=== PATIENT | male | born 1995 | race Caucasian/White ===

== ENCOUNTER 2017-07-14 15:31 | Emergency (ER) | payer BC, OTHER ==
[~2017-07-14 15:31] MED LIST: CLIN150 PO
[2017-07-14 15:33] VITALS: BP 159/87; PULSE 90; RESP 16; TEMP 97.6; O2SAT 100
--- NOTE | 2017-07-14 16:29 | RADRPT ---
EXAM DATE/TIME: 07/14/2017 15:58 [place] COMPARISON: No previous studies available for comparison. INDICATIONS : Left sided chest pain. MEDICAL HISTORY : None. SURGICAL HISTORY : None. ENCOUNTER: Initial ACUITY: 4 - 6 days PAIN SCORE: 5/10 LOCATION: Left upper chest FINDINGS: PA and lateral views of the chest demonstrate the lungs to be symmetrically aerated without evidence of mass, infiltrate or effusion. The cardiomediastinal contours are unremarkable. Osseous structure s are intact. Incidental note of a pectus excavatum deformity of the lower sternum. CONCLUSION: No acute cardiopulmonary process. Rd Perez MD on July 14, 2017 at 16:22 Board Certified Radiologist. This report was verified electronically.
--- NOTE | 2017-07-14 16:46 | PD ---
HPI Chief Complaint: Chest Pain Time Seen by Provider: 16:05 Travel History International Travel<30 days: No Contact w/Intl Traveler<30days: No Traveled to known affect area: No History of Present Illness HPI Said 21-year-old man who presents to the emergency department complaining of intermittent chest pain and anxiety symptoms. He states he started a couple nights ago when he was lying in bed and he felt like he stopped breathing. States since then he has had pain in his chest and some shortness of breath. No personal history of anxiety. States he may been under a little bit more stress than normal but not really all that much. No recent flights or rhythm 4 hours, did fly to [place] recently, 3 hours. No leg swelling or other evidence of DVT. No recent injuries. No recent increase in activity or work out. History Past Medical History Medical History: Denies Significant Hx Tetanus Vaccination: < 5 Years Social History Alcohol Use: Yes Tobacco Use: Yes Allergies-Medications (Allergen,Severity, Reaction): Coded Allergies: Sulfa (Sulfonamide Antibiotics) (Unverified Allergy, Mild, Hives, 03/31/17) amoxicillin (Unverified Allergy, Mild, Hives, 03/31/17) Reported Meds & Prescriptions Reported Meds & Active Scripts Active Cleocin (Clindamycin HCl) 150 Mg Cap 1 Tab PO Q8HR Review of Systems Except as stated in HPI: all other systems reviewed are Neg Physical Exam Narrative GENERAL: Well-appearing 21-year-old man, no acute distress. SKIN: Focused skin assessment warm/dry. HEAD: Atraumatic. Normocephalic. EYES: Pupils equal and round. No scleral icterus. No injection or drainage. ENT: No nasal bleeding or discharge. Mucous membranes pink and moist. NECK: Trachea midline. No JVD. CARDIOVASCULAR: Regular rate and rhythm. No murmur appreciated. RESPIRATORY: No accessory muscle use. Clear to auscultation. Breath sounds equal bilaterally. GASTROINTESTINAL: Abdomen soft, non-tender, nondistended. Hepatic and splenic margins not palpable. MUSCULOSKELETAL: No obvious deformities. No clubbing. No cyanosis. No edema. NEUROLOGICAL: Awake and alert. No obvious cranial nerve deficits. Motor grossly within normal limits. Normal speech. PSYCHIATRIC: Appropriate mood and affect; insight and judgment normal. Data Data Last Documented VS Vital Signs Date Time Temp Pulse Resp B/P (MAP) Pulse Ox O2 Delivery O2 Flow Rate FiO2 07/14/17 15:33 97.6 90 16 159/87 (111) 100 Room Air Orders Orders Electrocardiogram (07/14/17 15:40) Chest, Pa & Lat (07/14/17 15:40) [facility] Medical Decision Making Medical Screen Exam Complete: Yes Emergency Medical Condition: Yes Interpretation(s) Personal review of EKG: Man normal sinus rhythm at a rate of 66, normal axis, normal intervals, some J-point elevation anteriorly precordial leads suggestive of early repolarization, normal intervals, no definite evidence of acute ischemia. Chest x-ray: Negative Differential Diagnosis Anxiety, PE, dissection, ACS, palpitations, arrhythmia, other Narrative Course Medical decision making This 21-year-old man who presents emergency department with sounds like anxiety symptoms. Palpitations and chest heaviness at night, looks otherwise well. No real risk factors for PE. No red flag symptoms for dissection. X-rays unremarkable. EKG reassuring. Recommend supportive treatment. Diagnosis Primary Impression: Heart palpitations Additional Instructions: Follow-up with her primary doctor in the next 2-4 days if you're not completely well. Return to the emergency department for any worsening chest pain or trouble breathing. Disposition: 01 DISCHARGE HOME Condition: Stable Alex Martinez MD Jul 14, 2017 16:46
--- NOTE | 2017-07-15 05:16 | EKG ---
Date Performed: 07/14/2017 Time Performed: 15:45:16 PTAGE: 21 years EKG: Sinus rhythm WITH SINUS ARRHYTHMIA POSSIBLE LEFT ATRIAL ENLARGEMENT BORDERLINE ECG NO PREVIOUS TRACING DOCTOR: Dionisio Navarro Interpretating Date/Time 07/15/2017 05:14:58
== END 2017-07-14 17:11 | disposition home or self-care (01) ==
LOC: NEPD 15:31
DX: R00.2 Palpitations (principal)
CPT/HCPCS: 71020; 93005; 99283